=== PATIENT | female | born 2000 | race Hispanic/Latino ===

== ENCOUNTER 2024-11-21 23:35 | Inpatient (IN) | payer SELFPAY ==
[2024-11-21 23:20] VITALS: BMI 30.4
[2024-11-21 23:23] VITALS: RESP 16; TEMP 36.6; O2SAT 98
[2024-11-21 23:25] VITALS: BP 121/79; PULSE 76
[2024-11-21 23:26] VITALS: PULSE 77; O2SAT 98
[2024-11-22] VITALS (44 sets, daily range): BP systolic 101–124; BP diastolic 56–77; PULSE 71–91; RESP 14–16; TEMP 36.1–37.1; O2SAT 93–100
[2024-11-22] MEDS: 0.9% Saline Lock 10 ML Syringe IV (00:05)
[2024-11-22 00:20] LABS: Absolute Neutrophil Count 14.4 X10^3/uL (2.0-7.7); Basophil# 0.04 X10^3/uL; Basophil% 0.2 % (0-1); Eosinophil# 0.01 X10^3/uL; Eosinophils% 0.1 % (0-5); Hematocrit 38.8 % (37-47); Hemoglobin 13.4 g/dL (12.0-15.0); Lymphocyte % 10.1 % (19-41); Mean Corp Hgb Conc 34.5 g/dL (32-36); Mean Corpuscular Hgb 31.5 pg (27.0-32.0); Mean Corpuscular Volume 91.1 fL (81-99); Mean Platelet Vol. 12.5 fl (6.2-12.0); Monocyte# 0.61 X10^3/uL; Monocyte% 3.6 % (0-10); NRBC Flagged by Analyzer 0 % (0-5); Neutrophil % 85.8 % (47-70); Platelet Count 211 K/mm3 (150-450); RBC Distribution Width CV 13.7 % (11.6-14.6); RBC Distribution Width SD 45.6 fl (35.1-43.9); Red Blood Count 4.26 M/mm3 (4.2-5.4); White Blood Count 16.8 K/mm3 (4.4-11.0)
[2024-11-22] MEDS: Lactated Ringers 1,000 ML 50 ML IV (00:20)
[2024-11-22] MEDS: Penicillin G Pot 5,000,000 UNITS in 0.9% Normal Saline (100mL MB+) 100 ML 150 UNITS IV (00:21)
--- NOTE | 2024-11-22 00:27 | HP.PCM.OB_ITS ---
HPI - General General Date of Admission: 11/21/24 HPI Narrative VENUS COHN, is a 24 F who presents at 40w3d with regular painful contractions. No bleeding or leakage of fluid. Presents with two friends that speak Pashto, declines asl interpreter services. Maternal Data Information ADAM Calculator Estimated Delivery Date Method Current WG Current Estimate 11/19/24 Manual 40w 3d PFSH PFS Medical History (Updated 11/22/24 @ 01:33 by Maria Fernanda Nunez CNM) Gestational diabetes Home Medications ?Medication ?Instructions ?Recorded ?Last Taken ?Type vit no.95-ferrous 1 tab PO DAILY 11/21/24 11/20/24 08:29 History fumarate 28 mg-folic acid 800 mcg tablet () Allergy/AdvReac Type Severity Reaction Status Date / Time No Known Allergies Allergy Verified 11/21/24 23:29 Social History Smoking Status: Never smoker History Elective abortions Hx Para 1 Spontaneous abortions Hx # Term Pregnancies Ectopic pregnancies Hx # Pregnancies Multiple births # of living children NST FHR Rate Baby A Baseline: 125 Variability:: Moderate Accelerations:: 15 x 15 Decelerations:: None FHR Category:: Category I Uterine Activity:: every 2-3 minutes, strong ROS Constitutional Constitutional: Reports systems reviewed and no addt'l complaints, except as documented; Denies headache(s) Eyes Eyes: Denies acute decrease in peripheral vision, blurry vision or change in vision ENT HEENT: Reports systems reviewed and no addt'l complaints, except as documented Cardiovascular Cardiovascular: Denies chest pain or dizziness Respiratory/Chest Respiratory/Chest: Denies cough, dyspnea, dyspnea on exertion, shortness of breath at rest or shortness of breath with exertion Gastrointestinal Gastrointestinal: Denies abdominal pain, diarrhea, nausea or vomiting Genitourinary Genitourinary: Denies abdominal discomfort Musculoskeletal Musculoskeletal: Denies limited range of motion Integumentary Integumentary: Reports systems reviewed and no addt'l complaints, except as documented Neurologic Neurologic: Reports systems reviewed and no addt'l complaints, except as documented Psychiatric Psychiatric: Reports systems reviewed and no addt'l complaints, except as documented Endocrine Endocrinology: Reports systems reviewed and no addt'l complaints, except as documented Hematologic/Lymphatic Hematologic/Lymphatic: Reports systems reviewed and no addt'l complaints, except as documented Allergic/Immunologic Allergic/Immunologic: Reports systems reviewed and no addt'l complaints, except as documented Vital Signs Vital Signs Vital Signs: 11/21/24 23:23 11/21/24 23:23 11/21/24 23:23 Temperature Temperature Source Temporal Pulse Rate Respiratory Rate 16 Blood Pressure BP Systolic BP Diastolic Pulse Ox 98 11/21/24 23:23 11/21/24 23:25 11/21/24 23:25 Temperature 97.9 F Temperature Source Pulse Rate 76 Respiratory Rate Blood Pressure 121/79 H BP Systolic 121 BP Diastolic 79 Pulse Ox 11/21/24 23:26 11/21/24 23:26 Temperature Temperature Source Pulse Rate 77 Respiratory Rate Blood Pressure BP Systolic BP Diastolic Pulse Ox 98 Weight Weight: 151 lb 0.266 oz Body Mass Index (BMI) 30.4 Physical Exam Const alert and oriented x3 General Appearance: cooperative Orientation / Consciousness: awake, oriented to person, oriented to place and oriented to time Exam Limitations: no limitations HEENT normocephalic Head and Scalp: normal to inspection, normocephalic and atraumatic Face and Sinus: normal facial exam Eyes General Eye: normal appearance of both eyes Neck full ROM Chest Chest: symmetrical chest wall rise Resp normal respiratory effort and normal air movement Auscultation: clear to auscultation bilaterally Cardio regular rate, regular rhythm, S1 normal heart sound, S2 normal heart sound, no murmurs, no rub, no gallops and no clicks GI normal to inspection, nondistended, normoactive bowel sounds and non-tender appearance of the vagina normal Bladder / Kidney Exam: no CVA tenderness Manual OB Exam: estimated gestational size large (LGA), presentation cephalic, dilated 8.5, effaced 80%, station -1 and other AROM for moderate meconium stained fluid Back/Spine normal ROM Extremity normal to inspection and full ROM Skin no rashes or lesions noted Neuro oriented x3, CN's II-XII intact bilaterally and moves all extremities Sensorium / Orientation: awake, alert and oriented to person Motor Exam: clonus absent Deep Tendon Reflexes: Rt Patellar (L4): 2+ and Lt Patellar (L4): 2+ Labs Labs Labs: Blood Type O POSITIVE Antibody Screen NEGATIVE Hct 38.8 % (37-47) Hgb 13.4 g/dL (12.0-15.0) Syphilis Total Ab Non-reactive HepC negative HBsAG negative HIV negative Rubella Immune O positive 1hr GCT elevated 3hrGTT abnormal GBS not completed GC/CT negative Assessment & Plan (1) GDM, class A1: (2) Active labor at term: (3) Pashto speaking patient: (4) 40 weeks gestation of : PLAN: Plan 1) Admit to labor and delivery 2) Routine labs 3) Continuous EFM 4) Pain management upon request 5) Dr. Brady [facility] physician and notified of patient status, above assessment, and plan. 6) Discrepancy on ultrasound for ADAM. ADAM 11/19/24 by 20 week anatomy US used.
[2024-11-22 00:39] LABS: Bedside Glucose 99 mg/dL (74-106)
[2024-11-22 00:55] LABS: Syphilis Antibodies Non-reactive
--- NOTE | 2024-11-22 01:14 | PLAC_PTH ---
PATIENT: VENUS COHN LOC: WP U#:[id number] AGE/SX: 24/F ROOM: WP015 RE11/21/[address]: Maria Fernanda Nnuez CNM : 2000 BED: 1 DIS: 11/23/2024 SPEC #: [id number] RECD: 11/22/24 01:35 STATUS: LEONIDAS REMadhu #: [id number] LES: 11/22/24 01:[address]: Maria Fernanda Nunez DEPT: SURGICAL PATHOLOGY RECD BY: Arlette Aguirre ENTERED: 11/22/24 09:46 SP TYPE: PLACENTA OTHR DR: No Primary Care Phys Tissues: Placenta, NOS Procedures: Surgery Specimen Level V HEADER OPERATION: Vaginal delivery PRE-OP DIAGNOSIS: Shape and 36weeks TISSUE SUBMITTED: Placenta MICROSCOPIC DIAGNOSIS Placenta, Vaginal Delivery: 1. 373-gram placenta at 40 weeks gestational age, 5th-10th percentile 2. Three vessel umbilical cord 3. Chorioamnionitis 4. Chorionic villi of appropriate maturity for gestational age 5. Decidual focal calcification JS, 11/24/2024 MICROSCOPIC DESCRIPTION Slides are reviewed. GROSS DESCRIPTION SPECIMEN: PLACENTA / CLINICAL INFORMATION: A. Weight: 3.43 kg B. Gestational Age:40 weeks C. Sex: Female PLACENTAL WEIGHT (POST FIXATION): 373 gm PLACENTAL DIMENSIONS: 15 x 16 x 3 cm. Succenturiate lobe measuring 4.5 x 4.5 x 1.5cm. PLACENTAL SHAPE: Usual ovoid with a succenturiate lobe PLACENTAL WEIGHT FOR GESTATIONAL AGE: Within 5th -10th percentile MEMBRANES - Present A. Insertion: Marginal B. Site of rupture from edge: 5 cm from edge of placental disc C. Color of membrane: Alonso-greenish mucoidy D. Abnormalities: None UMBILICAL CORD - Present A. Color: Alonso-feldman B. Insertion: Marginal C. Length: 52 cm D. Diameter: 1.1 cm E. Number of vessels: Three F. Abnormalities: Increased spiraling of the spinal cord is noted. A few false knots are also noted. PLACENTAL DISC - Present A. Color of surface: Alonso-feldman B. surface abnormalities: None C. Maternal cotyledons: Intact with minimal tears. Maternal surface shows increased punctate calcification. D. Attached retro placental clot: No clot E. Cut surface: Dark red and spongy F. Lesions: None G. Separate clot: Absent SECTIONS SUBMITTED: (6 cassettes) 1. Membrane roll 2. Cord, maternal end 3. Cord, end 4. Placental disc, and maternal surfaces 5. Placental disc, and maternal surfaces 6. Placental disc, and maternal surfaces SJ.mr 11/23/2024 TC:2 CPT: 72768
[2024-11-22] MEDS: Oxytocin 15 Units/NS 250ml 15 UNITS/250 ML IV.SOLN 334 UNITS IV (01:18)
--- NOTE | 2024-11-22 01:32 | NURSING ---
JCosta CNM states to only give one full bag of pitocin following delivery with rate of 83cc/hr. no IM pitocin to be given.
[2024-11-22 01:35] LABS: Pathology Specimen OB SEE PATHOLOGY REPORT
--- NOTE | 2024-11-22 01:35 | EX.PCM.OBVAG ---
Assessment & Plan (1) Vaginal delivery: (2) Meconium in amniotic fluid: (3) Sri Lankan speaking patient: Maternal Data Information ADAM Calculator Estimated Delivery Date Method Current WG Current Estimate 11/19/24 Manual 40w 3d Vaginal Delivery Maternal Presentation Maternal Presentation: Active Labor Vaginal Delivery Information Procedure Performed: Spontaneous Vaginal Delivery Date of Procedure: 11/22/24 Pre-Procedure Diagnosis: Active labor at term, suspected LGA Post-Procedure Diagnosis: Type of anesthesia: None Estimated Blood Loss: 200ml Time of Delivery: :14 Findings Description of procedure: Progressed to complete with urge to push. Unmedicated. Dental Technologist and respiratory called for delivery due to meconium stained fluid. of viable female infant over intact. APGARS 8,9 respectively. head delivered with body immediately forthcoming. CAN x2, delivered through. Placed on maternal abdomen, strong cry. Mouth and nares suctioned for secretions. Pitocin started for active 3rd stage management. Cord doubly clamped and cut by friend after pulsations ceased, delayed cord clamping. Placenta delivered intact via mckenna, 3 vessel cord intact. Perineum inspected and revealed intact. Fundus firm and hemostasis achieved. EBL 200ml. Mom and baby stable, planning to breastfeed and bottle feed. Family bonding well. notified of delivery. Presentation: Vertex Amniotic Membrane Rupture Type: Spontaneous Amniotic Fluid Description: Moderate meconium Placental Delivery Description: Spontaneous Placenta Disposition: Sent to Pathology Specimen collected: No Cord Vessel Description: 3 Vessels Cord Entanglement: Around neck x 2, loose Nuchal Cord Compression: Without compression Infant A Gender: Female (1 minute): 8 (5 minute): 9 Delayed Cord Clamping: Yes Instructor Modeling flight/transport nurse: No Post Vaginal Deli Medications given after delivery: IV Pitocin Episiotomy Description: None Laceration: None Complication Complications: No
[2024-11-22] MEDS: Acetaminophen 500 MG Tablet 1000 MG PO ×2 (02:11→20:03)
[2024-11-22 02:21] LABS: Bedside Glucose 115 mg/dL (74-106)
--- NOTE | 2024-11-22 03:05 | NURSING ---
0145 this RN notified Rosa HUYNH of BGT in recovery of 115. no action necessary at this time. provider states to obtain fasting BS in AM. no further needs.
--- NOTE | 2024-11-22 04:26 | NURSING ---
report given to chart RN. that RN to assume care of couplet at this time.
[2024-11-22 05:15] LABS: Bedside Glucose 112 mg/dL (74-106)
[2024-11-22] MEDS: Ibuprofen 600 MG Tablet PO (11:08)
[2024-11-23 00:47] VITALS: BP 109/59; PULSE 76; O2SAT 96
[2024-11-23 01:21] VITALS: BP 109/59; PULSE 82; RESP 16; TEMP 36.3; O2SAT 95
[2024-11-23 07:37] VITALS: BP 112/69; PULSE 83
[2024-11-23 07:45] VITALS: BP 112/69; PULSE 83; RESP 16; TEMP 37
--- NOTE | 2024-11-23 08:08 | PCM.PROGNOTE ---
Subjective Subjective patient seen at bedside, doing well. Patient reports good pain control. lochia mild. Objective Data Objective Data Vital Signs: Vital Signs Temp Pulse Resp BP Pulse Ox O2 Del Method 97.4 F L 83 16 112/69 95 Room Air 11/23/24 01:21 11/23/24 07:37 11/23/24 01:21 11/23/24 07:37 11/23/24 01:21 11/23/24 01:21 Oxygen Delivery Method Room Air Weight: 68.5 kg Body Mass Index (BMI) 30.4 Intake & Output: Intake and Output for Last 24 Hours 11/21/24 11/22/24 11/23/24 23:59 23:59 23:59 Intake Total 355.29 / 355.29 Output Total 700 / 700 Balance -344.71 / -344.71 Lab / Micro Data 11/22/24 00:05 Physical Exam Const alert and oriented x3 General Appearance: cooperative HEENT normocephalic Neck General: normal visual inspection GI soft to palpation and non-distended GI Narrative: Fundus firm Extremity normal to inspection and no calf tenderness Skin no rashes or lesions noted Neuro oriented x3 and CN's II-XII intact bilaterally Psych mental status grossly normal Assessment & Plan Assessment/Plan (1) Vaginal delivery: (2) GDM, class A1: PLAN: Plan PPD#1 , Doing well Routine care pain mgmt ambulation dc home today time spent with patient face to face on day of discharge <30min
--- NOTE | 2024-11-23 08:10 | DCINST_ITS ---
Discharge Instructions Diet Discharge Diet: No restrictions DC O2, CPAP, BIPAP needs Home O2 Discharge instructions: No Dressing / Incision May resume sexual activity in: 6-8 weeks Dressing / Incision Call your doctor if you observe: Fever of 101 or Higher, Inability to urinate, Using more than 1 pad per hour and Uncontrolled pain Follow Up Care Please Follow Up With: Maria Fernanda Nunez CNM When: 1-2 weeks post and again at 6 weeks post . [phone] Test Results: Test results from this visit will be discussed in further detail at your follow- up appointment, if applicable. Discharge Plan Admission Admit Date/Time: 11/21/24 23:35 Attending Provider: Maria Fernanda Nunez Primary Care Provider: Care Physician,Eli Primary Discharge Orders/Prescriptions Prescriptions: New acetaminophen 500 mg Tablet 1,000 mg PO Q6H PRN PRN (Reason: Pain 1-10 Or Fever) Qty: 0 0RF ibuprofen 600 mg Tablet 600 mg PO Q6H PRN PRN (Reason: Pain Score 1-10) Qty: 0 0RF Continued PNV cmb#95-ferrous fumarate-FA [] 28 mg iron- 800 mcg tablet 1 tab PO DAILY Referrals / Follow Up: Care Physician,No Primary [Primary Care Provider] - Disposition Disposition (needs filled in before D/C Order can be placed): Home, Self Care
[2024-11-23 12:30] VITALS: BP 117/62; PULSE 112; RESP 16; TEMP 37.1
[2024-11-23 12:31] VITALS: BP 117/62; PULSE 112
--- NOTE | 2024-11-23 15:00 | CASEMGMT ---
Social Work Assessment Labor and Delivery Unit Patient Address: [address] [place] [id number] Phone number: [phone] Date of Referral: 11/22/24 Time of Referral: 0700 Referred By: Maria Fernanda Nunez Date of Intervention: 11/23/24 Time of Intervention: 1100 Reason for Referral: resources, Maori speaking Sw completed chart review and acknowledges social work consult due to patient being Maori speaking and in need of resources. Sw presented to bedside and using iPad music video producer introduced self to mother of baby (RADAMES- Roni) and completed psychosocial assessment. History obtained from: medical records and mother of baby (MOB) Household composition: Currently residing in the family home is MOB, father of baby (FOB- Murphy Kennedy) and their son Radha Uribe. [place] baby to be added to residence when ready for discharge. MOB denies any issues or concerns with housing. Patient's parent/guardian status: MOB states that she and FOB have been together for 8 years. MOB reports that she and FOB met at the village [place] both [place]. MOB states that she and FOB are , however sw not sure if this is a legal binding or not. MOB denies any domestic violence or intimate partner violence. Medical History: RADAMES is 24 year old female who is 2, para 1- now 2 following labor and delivery of . MOB received care with [facility]. RADAMES presented to hospital and delivered baby at 40 weeks gestation via vaginal delivery on 11/22/24. Baby girl, named Radha Sanchez, had apgars of 8 and 9 at one and five minutes of life, respectfully. RADAMES is breast feeding baby and states that she is still working on securing a director of event marketing for baby. Educational Status: MOB completed secondary school but did not graduate from high school. FOB graduated from high school. Financial Status: FOB is employed outside of the home working as a boat cleaner. MOB states that she is unemployed at this time. Supplies: All necessary baby supplies have been obtained, including: car seat, safe sleep space, clothes, diapers and wipes. Childcare/Caregiver(s): MOB states that she will be the primary caregiver to baby. Transportation: MOB states that she does not drive, but FOB does and he has reliable means of transportation. MOB states that if she needs assistance with transportation to medical appointments she has family members that help her. Programs/Agencies Involved: RADAMES is connected to [facility]. She is also submitting documents to [employer] so that baby can get approved for Medicaid insurance. Children Services/Legal Issues: MOB denies history of involvement with Children Services. No current issues or concerns warranting referral to be made at this time. Behavioral Health Issues: Mental Health History: MOB denies mental health diagnoses for herself or for FOB. Substance Use History: MOB denies substance use history prior to and during . Family History: MOB denies family history of substance use or significant mental health diagnoses. Drug Screens: No drug screens observed during chart review. Family/Social Stressors: MOB denies any issues, concerns or stressors at this time. Support Systems: RADAMES says that FOB is her biggest support. Depression/Shaken Baby/Safe Sleeping: Sw educated MOB on signs and symptoms of baby blues and mood and anxiety disorders to be mindful of during period. MOB expressed understanding. Sw educated MOB on shaken baby prevention and ABCs of safe sleep. MOB expressed understanding. ASSESSMENT: MOB and baby admitted following labor and delivery or . MOB welcoming of sw, and was observed to be in bed with feeding her. MOB made eye contact and participated openly in conversation as well as completion of psychosocial assessment. RADAMES is connected to appropriate community resources: WIC. RADAMES states that she has a friend who helps her with transportation when necessary and FOB is her biggest support person. This is second baby for MOB, she states she has all the necessary baby supplies. PLAN: MOB and baby to be discharged when medically ready. MOB provided list of [facility] resources in Maori, information on WIC, Help Me Grow and signs and symptoms of baby blues and mood and anxiety disorders to be mindful of. No other services requested or indicated. Lawanda Faust, RAKING MACHINE OPERATOR, BATCH RECORDS CLERK
--- NOTE | 2024-11-29 15:25 | NURSING ---
Follow up phone call performed via science interpreter phone line, Sylvia [phone]. Patient reports is going well. She had very good care and kind nurses during her hospital stay. She did have some questions about bleeding and headaches, and was forwarded to Jorge Alberto BAZZI.
--- NOTE | 2024-11-29 15:29 | NURSING ---
Follow up phone call was forwarded to this RN by BINDU Kwon. Pt. had questions about lochia and headaches. Lochia is decreasing, but pt. reports by this time with her first her bleeding was completely gone. Education given that lochia can last 4-6 weeks, but if it begins to increase or clots occur, to reach out to OBGYN office. Pt. also reports for the past 3 days having headaches rated 7/10 pain rogel. She denies vision changes, baby blues, or other s+s of PP complications. Pt. reports tylenol does help, but once it wears off the headache comes right back. This RN encouarged pt. to reach out to OBGYN, but pt. did not know how to do so. This RN to call OBGYN office and report findings to banking officer/provider, and have them reach out to patient to discuss more if needed. Pt. in agreeance with POC. No other questions or concerns at this time.
--- NOTE | 2024-11-29 15:34 | NURSING ---
This RN spoke with Jennifer, nurse, at [facility]. Reported patient's complaints of headaches 05/26. Tylenol helps some but then severe headaches come back. Denies other s+s of complications. No hx of GHTN in or during hospital stay. Pt. wasn't sure how to reach office, so that's why this RN was calling to report headaches, and requested office reach out to patient directly. Jennifer said that they would speak with patient.
== END 2024-11-23 13:30 | disposition home or self-care (01) | DRG 807 ==
LOC: WPOUT 23:41 → WP 23:41
PROVIDERS: Admitting Provider Advanced Practice Midwife; Referring Provider Advanced Practice Midwife; Visit Provider Advanced Practice Midwife
DX: O24.420 Gestational diabetes mellitus in childbirth, diet controlled (principal); Z37.0 Single live birth; O36.63X0 Maternal care for excessive fetal growth, third trimester, not applicable or unspecified; Z3A.40 40 weeks gestation of pregnancy; O69.81X0 Labor and delivery complicated by cord around neck, without compression, not applicable or unspecified; O77.0 Labor and delivery complicated by meconium in amniotic fluid
CPT/HCPCS: 59025; 59050; 82962; 85025; 86780; 86850; 86900; 86901; 88307; 99221; A4216; G0378